=== PATIENT | male | born 1985 | race Caucasian/White ===

== ENCOUNTER 2017-03-04 17:41 | Emergency (ER) | payer SELFPAY | END 2017-03-04 17:56 | disposition disaster alternative care site (69) | LOC: GACC 17:41 | DX: Z53.21 Procedure and treatment not carried out due to patient leaving prior to being seen by health care provider (principal) ==

== ENCOUNTER 2017-03-04 21:40 | Emergency (ER) | payer SELFPAY ==
--- NOTE | ~2017-03-04 | ER ---
[facility] 31 [facility] [address] ROOM: [place] [id number] LOCATION: [facility] ADMIT DATE: 03/04/2017 ER/Outpatient Report DISCHARGE DATE: 03/04/2017 FAMILY PHYSICIAN: PHYSICIAN, NO ATTENDING PHYSICIAN: Hong Pace Admission date and time documented in the medical record. I saw the patient at 2155 hours. CHIEF COMPLAINT: Right hand injury. HISTORY OF PRESENT ILLNESS: The patient is a 31-year-old male who punched a wall around 1500 hours today. He has pain in the lateral aspect of his right hand fifth metacarpal in the fifth MP joint. No other injuries. No other complaints. No open wounds. Does have marked swelling and ecchymosis. HOME MEDICATIONS: None. ALLERGIES: NONE. SOCIAL HISTORY: Nonsmoker. Does drink alcohol on the weekends. SIGNIFICANT PAST MEDICAL HISTORY: Negative. OPERATIONS: None. REVIEW OF SYSTEMS: All systems reviewed by me are negative with the exception of those discussed in the history of present illness. PHYSICAL EXAMINATION: VITAL SIGNS: Temperature 97.3 tympanic, pulse 87, respirations 16, blood pressure 112/83, O2 saturation on room air is 93%. EXTREMITIES: On examination of the right hand, the patient has ecchymosis and swelling of the right hand involving the fifth MP joint in the fifth metacarpal. No abrasion, laceration. No open wounds. NEUROVASCULAR: Intact. Pulse intact. PATIENT'S NAME: PANTERA FA[facility] AGE: 31 Y [address] ROOM: [place] [id number] LOCATION: [facility] ADMIT DATE: 03/04/2017 ER/Outpatient Report DISCHARGE DATE: 03/04/2017 FAMILY PHYSICIAN: PHYSICIAN, NO ATTENDING PHYSICIAN: Hong Pace LABORATORY DATA AND X-RAYS: X-ray shows a boxer fracture of the right fifth metacarpal. He has a distal shaft fracture right fifth metacarpal. We will review x-ray with the radiologist. IMPRESSION: Fracture distal right fifth metacarpal, boxer fracture. PLAN: The patient was placed in a volar splint. Discharged home. Observation. Activity as tolerated. Ice, elevation. No work for at least 3 days. The patient is to call Dr. Schulz, orthopedic hand surgeon, tomorrow morning at [facility] to get a time and appointment to be seen consultative exam. Follow up with personal physician as needed. Discussion ensued with the patient concerning my findings and recommendations and he understands. MD MAYRA HECTOR/abimbola /[id number] d: 03/05/171 t: 03/05/17 1831, OUTPATIENT REPORT
== END 2017-03-04 22:27 | disposition disaster alternative care site (69) ==
LOC: GACC 21:40
PROC: 2W3EX1Z Immobilization of Right Hand using Splint (ICD-10-PCS; principal; 2017-03-04)
DX: S62.336A Displaced fracture of neck of fifth metacarpal bone, right hand, initial encounter for closed fracture (principal); W22.01XA Walked into wall, initial encounter